=== PATIENT | female | born 1955 | race Caucasian/White ===

== ENCOUNTER 2017-01-29 11:18 | Emergency (ER) | payer BC ==
[2017-01-29] MEDS ORDERED: MECLIZINE 12.5 MG TAB PO STA (12:10)
[2017-01-29] MEDS ORDERED: LORazepam 1 MG TAB PO STA (12:10)
[2017-01-29] MEDS ORDERED: ONDANSETRON 4 MG TAB PO STA (12:13)
--- NOTE | 2017-01-29 13:55 | ED ---
General Adult HPI - General Chief complaint: Dizziness Stated complaint: Vertigo Time Seen by Provider: 01/29/17 11:51 Source: patient, family, RN notes reviewed Mode of arrival: wheelchair Limitations: no limitations - History of Present Illness Initial comments: 61-year-old female with past medical history of vertigo, anxiety, gastric reflux , diabetes, and osteoarthritis presenting with a 2 day history of dizziness. Patient states the room is spinning. She first appears symptoms 2 days ago when she woke it lasted approximately one hour. She had them again yesterday lasting approximately 5 minutes and today they have been ongoing for about 4 hours. She also complains of nausea. Denies vomiting. Denies vision changes. Denies fever or chills. Denies dysuria. Denies recent URI symptoms. Denies ear pain or hearing changes. Denies chest pain or shortness of breath. Denies palpitations. Patient's had similar symptoms proximally 5 years ago. Symptoms were sudden in onset. Prior to 2 days ago she had no complaints of dizziness, lightheadedness or nausea. - Related Data Home Medications Medication Instructions Recorded Confirmed Citalopram Hydrobromide [CeleXA] 20 mg PO HS 01/29/17 01/29/17 Pantoprazole Sodium 40 mg PO HS 01/29/17 01/29/17 sitaGLIPtin [Januvia] 100 mg PO HS 01/29/17 01/29/17 traMADol HCL [Ultram] 50 mg PO DAILY PRN 01/29/17 01/29/17 Previous Rx's Medication Instructions Recorded LORazepam [Ativan] 0.5 mg PO TID PRN #20 tab 01/29/17 Meclizine [Antivert] 25 mg PO TID PRN #30 tab 01/29/17 Ondansetron HCl [Zofran] 4 mg PO TID PRN #10 tablet 01/29/17 Allergies Allergy/AdvReac Type Severity Reaction Status Date / Time No Known Allergies Allergy Verified 01/29/17 12:25 Review of Systems ROS Statement: Those systems with pertinent positive or pertinent negative responses have been documented in the HPI. ROS Other: All systems not noted in ROS Statement are negative. Constitutional: Denies: fever, chills, weakness Eyes: Denies: eye pain ENT: Denies: throat pain Respiratory: Denies: cough, dyspnea Cardiovascular: Denies: chest pain Endocrine: Denies: fatigue Gastrointestinal: Reports: nausea. Denies: abdominal pain, vomiting Genitourinary: Denies: urgency, dysuria Skin: Denies: rash Neurological: Reports: vertigo. Denies: headache, weakness, numbness, paresthesias Past Medical History Past Medical History: Diabetes Mellitus, GERD/Reflux, Osteoarthritis (OA) Additional Past Medical History / Comment(s): vertigo, chronic back pain History of Any Multi-Drug Resistant Organisms: None Reported Past Surgical History: Back Surgery Past Psychological History: Anxiety, Depression Smoking Status: Former smoker Past Alcohol Use History: None Reported Past Drug Use History: None Reported General Exam Limitations: no limitations General appearance: alert, in no apparent distress Eye exam: Present: normal appearance, PERRL, EOMI. Absent: scleral icterus, nystagmus ENT exam: Present: mucous membranes moist, TM's normal bilaterally Neck exam: Present: full ROM. Absent: meningismus Respiratory exam: Present: normal lung sounds bilaterally. Absent: respiratory distress Cardiovascular Exam: Present: regular rate, normal rhythm GI/Abdominal exam: Present: soft. Absent: distended, tenderness Rectal exam: Present: deferred Extremities exam: Present: full ROM. Absent: pedal edema Neurological exam: Present: alert, oriented X3, CN II-XII intact, other. Absent : motor sensory deficit Psychiatric exam: Present: normal affect, normal mood Skin exam: Present: warm, dry Course Vital Signs 01/29/17 01/29/17 11:31 13:11 Temperature 98.1 F Pulse Rate 72 Respiratory 20 14 Rate Blood Pressure 142/68 O2 Sat by Pulse 99 Oximetry - Reevaluation(s) Reevaluation #1: 01/29/17 14:03 Patient is reevaluated at 1340. Her symptoms have improved. She still does experience some spinning sensation when she had placed. She has been up to the bathroom without difficulty. She has had no episodes of vomiting while in the emergency department. Medical Decision Making - Medical Decision Making 61-year-old female presenting with sudden onset dizziness and nausea. Patient has not had any episodes of vomiting. She states she feels like the room is spinning. The symptoms are worse while standing. The patient is lying down she has minimal symptoms. She is given meclizine, Zofran, and Ativan in the emergency department. Her neurologic exam is nonfocal. She has no nystagmus. Examination bilateral tympanic membranes is unremarkable. Patient has no recent history of URI. Her history and presentation is consistent with peripheral vertigo. On reevaluation she is feeling better. She only has mild symptoms with ambulation. Patient is agreeable to discharge and will present for reevaluation if symptoms worsen or change in any way. Patient is instructed on what to watch for at home. She will follow up with primary care physician. Patient does not have a primary care physician in [place], she is given family medicine follow-up. Diagnosis: Peripheral vertigo Disposition: Home with outpatient follow-up. Disposition Clinical Impression: Vertigo, benign positional Disposition: HOME SELF-CARE Condition: Good Instructions: Vertigo (ED) Prescriptions: LORazepam [Ativan] 0.5 mg PO TID PRN #20 tab PRN Reason: dizziness Meclizine [Antivert] 25 mg PO TID PRN #30 tab PRN Reason: dizziness Ondansetron HCl [Zofran] 4 mg PO TID PRN #10 tablet PRN Reason: Nausea Referrals: None,Stated [Primary Care Provider] - 1-2 days
[2017-01-29 14:04] VITALS: BP 147/70; PULSE 59; RESP 16; TEMP 98
== END 2017-01-29 14:02 | disposition home or self-care (01) ==
LOC: EC 11:18
DX: H81.10 Benign paroxysmal vertigo, unspecified ear (principal); E11.9 Type 2 diabetes mellitus without complications; K21.9 Gastro-esophageal reflux disease without esophagitis; F32.9 Major depressive disorder, single episode, unspecified; F41.9 Anxiety disorder, unspecified; Z87.891 Personal history of nicotine dependence; Z79.899 Other long term (current) drug therapy
CPT/HCPCS: 99283

== ENCOUNTER → 2017-09-25 | Outpatient (CLI) | payer BC ==
--- NOTE | 2017-09-26 12:13 | MM ---
Reason for exam: screening (asymptomatic). Physical Findings: A clinical breast exam by your physician is recommended on an annual basis and results should be correlated with mammographic findings. MG Screening Mammo w CAD Bilateral CC and MLO view(s) were taken. No prior studies available for comparison. The breast tissue is heterogeneously dense. This may lower the sensitivity of mammography. There is a low density 6mm mass in the lower inner quadrant on the left breast adjacent to a dystrophic calcification, 8cm from nipple. There is a 3mm group of calcifications in the upper outer quadrant of the left breast at posterior depth. Just superior and anterior on the MLO view there is a 4mm asymmetry. There is a focal asymmetry in the central outer right breast at posterior depth. ASSESSMENT: Incomplete: need additional imaging evaluation, BI-RAD 0 RECOMMENDATION: Special view mammogram of both breasts. If lesion persists on supplemental views, image directed ultrasound is recommended. [facility] will attempt to contact patient to return for supplemental views and ultrasound if indicated.
== END | disposition home or self-care (01) ==
LOC: RADMAMWWP 07:51
PROVIDERS: ATTEND Family Medicine
DX: Z12.31 Encounter for screening mammogram for malignant neoplasm of breast (principal)
CPT/HCPCS: 77067

== ENCOUNTER → 2017-09-29 | Outpatient (CLI) | payer BC ==
--- NOTE | 2017-09-29 13:19 | MM ---
Reason for exam: additional evaluation requested from abnormal screening. Last mammogram was performed less than 1 month ago. History: Patient is postmenopausal. Took hormonal contraceptives beginning at age 19. Physical Findings: Nurse did not find any significant physical abnormalities on exam. MG Work Up Mamm w CAD BILAT Bilateral ML view(s) were taken. Spot compression CC and spot compression MLO view(s) were taken of the right breast. CC with magnification and ML with magnification view(s) were taken of the left breast. Prior study comparison: September 25, 2017, bilateral MG screening mammo w CAD. The breast tissue is heterogeneously dense. This may lower the sensitivity of mammography. Asymmetry in the left upper outer quadrant does not completely go away. 6mm density does not completely go away inner lower quadrant Focal asymmetry right upper outer quadrant does not go away on addition views. These results were verbally communicated with the patient and result sheet given to the patient on 09/29/17. ASSESSMENT: Incomplete: need additional imaging evaluation, BI-RAD 0 RECOMMENDATION: Ultrasound of both breasts.
--- NOTE | 2017-09-29 13:26 | USB ---
Reason for exam: additional evaluation requested from abnormal screening. History: Patient is postmenopausal. Took hormonal contraceptives beginning at age 19. US Breast Limited BILAT Right breast ultrasound demonstrates a 3 x 2 x 3mm lesion too small to characterize at 9 o'clock. Left breast ultrasound demonstrates a 3 x 2 x 3mm lesion too small to characterize at 6 o'clock and a 2mm lesion too small to characterize at 6 o'clock. These results were verbally communicated with the patient and result sheet given to the patient on 09/29/17. ASSESSMENT: Probably benign, BI-RAD 3 RECOMMENDATION: Follow-up diagnostic mammogram and ultrasound of both breasts in 6 months.
== END | disposition home or self-care (01) ==
LOC: RADMAMWWP 10:59
PROVIDERS: ATTEND Family Medicine
DX: R92.8 Other abnormal and inconclusive findings on diagnostic imaging of breast (principal)
CPT/HCPCS: 77066

== ENCOUNTER → 2018-03-26 | Outpatient (CLI) | payer BC ==
--- NOTE | 2018-03-26 11:02 | MM ---
Reason for exam: follow-up at short interval from prior study. Last mammogram was performed 6 months ago. History: Patient is postmenopausal. Reductions of both breasts, 1993. Benign excisional biopsy of the right breast. Took hormonal contraceptives beginning at age 19. Physical Findings: Nurse did not find any significant physical abnormalities on exam. MG Diagnostic Mammo w CAD JOSEPH Bilateral CC and MLO view(s) were taken. Prior study comparison: September 29, 2017, bilateral MG work up mamm w CAD BILAT. September 25, 2017, bilateral MG screening mammo w CAD. The breast tissue is heterogeneously dense. This may lower the sensitivity of mammography. Finding: There are typically benign punctate calcifications. There is no discrete abnormality. No significant changes in finding since September 29, 2017 and September 25, 2017. These results were verbally communicated with the patient and result sheet given to the patient on 03/26/18. ASSESSMENT: Incomplete: need additional imaging evaluation, BI-RAD 0 RECOMMENDATION: Ultrasound of both breasts.
--- NOTE | 2018-03-26 11:03 | USB ---
Reason for exam: additional evaluation requested from abnormal screening. History: Patient is postmenopausal. Reductions of both breasts, 1992. Benign excisional biopsy of the right breast. Took hormonal contraceptives beginning at age 19. US Breast BILAT Right complete breast ultrasound includes all four quadrants, the retroareolar region and axilla. Finding demonstrates a 0.3 x 0.2 x 0.2cm oval, cystic lesion at 9 o'clock and calcification seen at posterior nipple. Left complete breast ultrasound includes all four quadrants, the retroareolar region and axilla. Finding demonstrates a 0.6 x 0.7 x 0.2cm oval, cystic lesion at 7 o'clock. These results were verbally communicated with the patient and result sheet given to the patient on 03/26/18. ASSESSMENT: Benign, BI-RAD 2 RECOMMENDATION: Routine screening mammogram of both breasts in 1 year. Manage patient on a clinical basis.
== END | disposition home or self-care (01) ==
LOC: RADMAMWWP 08:45
PROVIDERS: ATTEND Family Medicine
DX: R92.8 Other abnormal and inconclusive findings on diagnostic imaging of breast (principal)
CPT/HCPCS: 77066

== ENCOUNTER → 2019-04-09 | Outpatient (CLI) | payer BC ==
--- NOTE | 2019-04-09 15:43 | XR ---
Left hip HISTORY: Left hip pain 2 views of the left hip Some mild remodeling present at the lateral aspect of the left femoral head is noted. Joint spaces an d alignment are maintained. Postop changes are noted in the likely lumbosacral junction. Bone mineral ization is normal. IMPRESSION: There may be some mild osteoarthritic change. Postop changes are suspected in the lower s pine.
== END | disposition home or self-care (01) ==
LOC: RADXRMAIN 13:49
PROVIDERS: ATTEND Family Medicine
DX: M25.552 Pain in left hip (principal)
CPT/HCPCS: 73502

== ENCOUNTER → 2019-04-11 | Outpatient (CLI) | payer BC ==
--- NOTE | 2019-04-12 11:37 | MM ---
Reason for exam: screening (asymptomatic). Last mammogram was performed 1 year and 1 month ago. History: Patient is postmenopausal. Reductions of both breasts, 1992. Benign excisional biopsy of the right breast. Took hormonal contraceptives beginning at age 19. Physical Findings: A clinical breast exam by your physician is recommended on an annual basis and results should be correlated with mammographic findings. MG Screening Mammo w CAD Bilateral CC and MLO view(s) were taken. Prior study comparison: March 26, 2018, bilateral MG diagnostic mammo w CAD JOSEPH. September 29, 2017, bilateral MG work up mamm w CAD BILAT. The breast tissue is heterogeneously dense. This may lower the sensitivity of mammography. Benign appearing bilateral calcifications. No suspicious abnormality. No significant changes when compared with prior studies. ASSESSMENT: Benign, BI-RAD 2 RECOMMENDATION: Routine screening mammogram of both breasts in 1 year.
== END | disposition home or self-care (01) ==
LOC: RADMAMWWP 15:11
PROVIDERS: ATTEND Family Medicine
DX: Z12.31 Encounter for screening mammogram for malignant neoplasm of breast (principal); Z98.890 Other specified postprocedural states
CPT/HCPCS: 77067

== ENCOUNTER → 2019-05-27 | Outpatient (CLI) | payer BC ==
--- NOTE | 2019-05-28 05:27 | MR ---
EXAMINATION TYPE: MR hip LT wo con DATE OF EXAM: 05/27/2019 COMPARISON: Outside radiograph 05/13/2019 HISTORY: 64-year-old female Left hip pain TECHNIQUE: Multiplanar, multisequence images of the left hip were obtained without IV contrast. FINDINGS: Metal hardware artifact relating to L5-S1 posterior lumbar fusion. The sacrum and SI joints appear in tact. No hip fracture or AVN or other pelvic fracture is seen. The degenerative changes at pubic symphysis are noted. No suspicious bone marrow replacement. Mild degenerative changes suggested at both hips. Suggestion of an acetabular labral tear posteriorly on the right, refer to coronal STIR image 13 and axial T2 FS image 11. On the right, there appears to be a sizable tear involving the insertion of the lateral gluteus mediu s. Physiologic hip joint fluid. On the left, there is heterogeneity of both the gluteus minimus and lateral gluteus medius with some overlying edematous change. The hamstrings and rectus femoris origins as well as the iliopsoas insertions appear intact. Symmetric course and caliber of the sciatic nerves. No pelvic free fluid. Uterus surgically absent. IMPRESSION: 1. Mild degenerative change of both hips. Suggestion of a posterior acetabular labral tear on right. No evidence for hip fracture or AVN on either side. 2. Insertional gluteal tendinosis on the left with intrasubstance tearing of both the gluteus minimus and lateral gluteus medius insertions. 3. Extensive partial tear of the lateral gluteus medius insertion on the right.
== END ==
LOC: RADMRIMAIN 11:43
PROVIDERS: ATTEND Orthopaedic Surgery
DX: S76.012A Strain of muscle, fascia and tendon of left hip, initial encounter (principal); M25.852 Other specified joint disorders, left hip; M25.851 Other specified joint disorders, right hip; M67.854 Other specified disorders of tendon, left hip

== ENCOUNTER → 2020-08-03 | Outpatient (CLI) | payer MEDICARE, BC ==
--- NOTE | 2020-08-05 14:38 | MM ---
Reason for exam: screening (asymptomatic). Last mammogram was performed 1 year and 4 months ago. History: Patient is postmenopausal. Reductions of both breasts, 1993. Benign excisional biopsy of the right breast. Took hormonal contraceptives beginning at age 19. Physical Findings: A clinical breast exam by your physician is recommended on an annual basis and results should be correlated with mammographic findings. MG Screening Mammo w CAD Bilateral CC and MLO view(s) were taken. Prior study comparison: April 11, 2019, bilateral MG screening mammo w CAD. March 26, 2018, bilateral MG diagnostic mammo w CAD JOSEPH. There are scattered fibroglandular densities. Stable fat necrosis calcifications on the left. New lateral nodularity on the right. ASSESSMENT: Incomplete: need additional imaging evaluation, BI-RAD 0 RECOMMENDATION: Special view mammogram of the right breast. (3D) If lesion persists on supplemental views, image directed ultrasound is recommended. [facility] will attempt to contact patient to return for supplemental views and ultrasound if indicated.
== END | disposition home or self-care (01) ==
LOC: RADMAMWWP 09:12
PROVIDERS: ATTEND Family Medicine
DX: Z12.31 Encounter for screening mammogram for malignant neoplasm of breast (principal)
CPT/HCPCS: 77067

== ENCOUNTER → 2020-08-07 | Outpatient (CLI) | payer BC, MEDICARE ==
--- NOTE | 2020-08-07 10:48 | MM ---
Reason for exam: additional evaluation requested from abnormal screening. Last mammogram was performed less than 1 month ago. History: Patient is postmenopausal. Reductions of both breasts, 1982. Benign excisional biopsy of the right breast, 1982. Physical Findings: Nurse did not find any significant physical abnormalities on exam. MG Work Up Mamm w CAD RT Spot compression CC, spot compression MLO, and ML view(s) were taken of the right breast. Prior study comparison: August 03, 2020, bilateral MG screening mammo w CAD. April 11, 2019, bilateral MG screening mammo w CAD. The breast tissue is heterogeneously dense. This may lower the sensitivity of mammography. Focal asymmetry outer right breast. My be present in retrospect. Not distinct on compression. This finding is changed when compared with previous exams. These results were verbally communicated with the patient and result sheet given to the patient on 08/07/20. ASSESSMENT: Probably benign, BI-RAD 3 RECOMMENDATION: Follow-up diagnostic mammogram of the right breast in 6 months.
== END | disposition home or self-care (01) ==
LOC: RADMAMWWP 09:00
PROVIDERS: ATTEND Family Medicine
DX: R92.8 Other abnormal and inconclusive findings on diagnostic imaging of breast (principal)
CPT/HCPCS: 77065

== ENCOUNTER → 2021-09-07 | Outpatient (CLI) | payer MEDICARE ==
--- NOTE | 2021-09-07 11:37 | MM ---
Reason for exam: additional evaluation requested from prior study. Last mammogram was performed 1 year and 1 month ago. History: Patient is postmenopausal. Reductions of both breasts, 1982. Benign excisional biopsy of the right breast, 1982. Physical Findings: Nurse did not find any significant physical abnormalities on exam. MG Diagnostic Mammo w CAD JOSEPH Bilateral CC and MLO view(s) were taken. Spot compression CC view(s) were taken of the right breast. Prior study comparison: August 03, 2020, bilateral MG screening mammo w CAD. April 11, 2019, bilateral MG screening mammo w CAD. March 26, 2018, bilateral MG diagnostic mammo w CAD JOSEPH. There are scattered fibroglandular densities. Asymmetric breast tissue right breast on CC middle position does not persist. These results were verbally communicated with the patient and result sheet given to the patient on 09/07/21. ASSESSMENT: Benign, BI-RAD 2 RECOMMENDATION: Routine screening mammogram of both breasts in 1 year.
== END | disposition home or self-care (01) ==
LOC: RADMAMWWP 10:42
PROVIDERS: ATTEND Family Medicine
DX: R92.8 Other abnormal and inconclusive findings on diagnostic imaging of breast (principal); Z78.0 Asymptomatic menopausal state
CPT/HCPCS: 77066

== ENCOUNTER 2021-12-22 11:54 | Emergency (ER) | payer MEDICARE, BC ==
[2021-12-22 12:25] VITALS: BP 114/70; PULSE 77; RESP 18; TEMP 98.3
--- NOTE | 2021-12-22 13:24 | XR ---
Lumbar spine HISTORY: Chronic back pain 3 views of the lumbar spine, no comparisons Patient is status post posterior lumbar sacral fusion L5-S1, grade 1 to grade 2 anterolisthesis prese nt L5-S1, intervertebral spacing block is present. Lumbar vertebral bodies show preserved height, bon e mineralization is reduced. There is multilevel spondylosis. Loss of disc height is present at L5-S1 and L2-3. Atherosclerotic calcifications are present in the aorta iliac distribution. Sclerosis is p resent in the posterior elements of the lower lumbar spine. Rudimentary rib present at L1 on the righ t. Laminectomy change present at L5. Surgical clips are present in the right upper quadrant. IMPRESSION: Postop changes, osteopenia, degenerative disc disease and facet arthropathy
[2021-12-22] MEDS ORDERED: DIAZEPAM 5 MG/ML 2 ML INJ IM ONE (14:41)
[2021-12-22] MEDS ORDERED: KETOROLAC 15 MG/ML 1 ML VIAL IM STA (14:41)
--- NOTE | 2021-12-22 14:52 | ED ---
General Adult HPI - General Chief complaint: Back Pain/Injury Stated complaint: back pain Time Seen by Provider: 12/22/21 14:29 Source: patient, RN notes reviewed, old records reviewed Mode of arrival: ambulatory Limitations: no limitations - History of Present Illness Initial comments: 66-year-old female presenting for evaluation of low back pain and pain radiating into her bilateral legs. Patient states that she had contacted orthopedics and has an appointment for January 19 for evaluation. Her pain has progressively worsened. There's been no injury. She denies saddle anesthesia. She is having difficulty ambulating secondary to pain. Patient states she had lumbar spinal surgery about 14 years ago. [place]. No fever. No urinary incontinence. - Related Data Home Medications Medication Instructions Recorded Confirmed Citalopram Hydrobromide [CeleXA] 20 mg PO HS 01/29/17 01/29/17 Pantoprazole Sodium 40 mg PO HS 01/29/17 01/29/17 sitaGLIPtin [Januvia] 100 mg PO HS 01/29/17 01/29/17 traMADol HCL [Ultram] 50 mg PO DAILY PRN 01/29/17 01/29/17 Previous Rx's Medication Instructions Recorded LORazepam [Ativan] 0.5 mg PO TID PRN #20 tab 01/29/17 Meclizine [Antivert] 25 mg PO TID PRN #30 tab 01/29/17 ondansetron HCL [Zofran] 4 mg PO TID PRN #10 tablet 01/29/17 Cyclobenzaprine [Flexeril] 5 mg PO TID PRN #9 tablet 12/22/21 HYDROcodone/APAP 5-325MG [[place] 1 tab PO Q6HR PRN #12 tab 12/22/21 5-325] Ibuprofen [Motrin] 600 mg PO Q8HR PRN #24 tab 12/22/21 Allergies Allergy/AdvReac Type Severity Reaction Status Date / Time No Known Allergies Allergy Verified 12/22/21 12:26 Review of Systems ROS Statement: Those systems with pertinent positive or pertinent negative responses have been documented in the HPI. ROS Other: All systems not noted in ROS Statement are negative. Past Medical History Past Medical History: Diabetes Mellitus, GERD/Reflux, Osteoarthritis (OA) Additional Past Medical History / Comment(s): vertigo, chronic back pain History of Any Multi-Drug Resistant Organisms: None Reported Past Surgical History: Back Surgery Past Psychological History: Anxiety, Depression Smoking Status: Never smoker Past Alcohol Use History: None Reported Past Drug Use History: Marijuana General Exam Limitations: no limitations General appearance: alert, in no apparent distress Head exam: Present: atraumatic, normocephalic Eye exam: Present: normal appearance ENT exam: Present: normal exam Neck exam: Present: normal inspection. Absent: tenderness, meningismus Respiratory exam: Present: normal lung sounds bilaterally. Absent: respiratory distress, wheezes Cardiovascular Exam: Present: regular rate, normal rhythm GI/Abdominal exam: Present: soft. Absent: distended, tenderness Extremities exam: Present: normal capillary refill, other (Pulses intact). Absent: pedal edema, calf tenderness Neurological exam: Present: alert, oriented X3, CN II-XII intact Skin exam: Present: warm, dry, intact. Absent: cyanosis, diaphoretic Course Vital Signs 12/22/21 12:20 Temperature 98.3 F Pulse Rate 77 Respiratory 18 Rate Blood Pressure 114/70 O2 Sat by Pulse 99 Oximetry Medical Decision Making - Medical Decision Making 66-year-old female with acute on chronic low back pain, worsening over the past several weeks. Patient has been on Tylenol only. She does have radicular symp toms. She has no saddle anesthesia. No bowel or bladder incontinence. She has good distal pulses. She is somewhat limited in her movement by pain. After Toradol and Valium she is feeling somewhat better. I did discuss the case with Erma who is covering for Dr. Titus about possibly getting this patient in sooner than January 19. Patient is given strict return parameters. She will trial oral medication. Disposition Clinical Impression: Lumbar radiculopathy, chronic, Chronic low back pain Disposition: HOME SELF-CARE Condition: Fair Instructions (If sedation given, give patient instructions): Acute Low Back Pain (ED) Prescriptions: Cyclobenzaprine [Flexeril] 5 mg PO TID PRN #9 tablet PRN Reason: Muscle Spasm Ibuprofen [Motrin] 600 mg PO Q8HR PRN #24 tab PRN Reason: Pain HYDROcodone/APAP 5-325MG [[place] 5-325] 1 tab PO Q6HR PRN #12 tab PRN Reason: Pain Is patient prescribed a controlled substance at d/c from ED?: No Referrals: Neto Feliz [Primary Care Provider] - 1-2 days James Titus DO [Doctor of Osteopathic Medicine] - 1-2 days Time of Disposition: 15:34
== END 2021-12-22 16:30 | disposition home or self-care (01) ==
LOC: EC 11:54
DX: M54.16 Radiculopathy, lumbar region (principal); E11.9 Type 2 diabetes mellitus without complications; K21.9 Gastro-esophageal reflux disease without esophagitis; M19.90 Unspecified osteoarthritis, unspecified site; Z79.899 Other long term (current) drug therapy; Z79.84 Long term (current) use of oral hypoglycemic drugs
CPT/HCPCS: 72100; 99283; 96372; J3360; J1885

== ENCOUNTER → 2022-02-07 | Outpatient (CLI) | payer MEDICARE, BC ==
[2022-02-07 12:57] VITALS: BP 102/60; PULSE 77; RESP 18; TEMP 98.2
--- NOTE | 2022-02-07 13:10 | P.PAINPG ---
PQRS Measure Charge Sheet Comment: HISTORY OF PRESENT ILLNESS: 66 yr old female as a referral from with severe and chronic LBP / tailbone pain secondary to BL Sacroiliitis for evaluation. Pt states her pain level is currently at 4/10 in intensity, intermitteint, sharp/ache shooting pain localized in the lower aspect of her lumbar spine, in character with radiation of pain towards the inner hips, groin and inner thighs. Pain is provoked with sitting for periods of 30 min or more. Pain is palliated with heat, one PT session but stopped due to increased pain, medications (Ibuprofen), home based stretching regimen, walking and rest. PMH: NIDDM Type II, GERD/Reflux, OA, MDD/ Anxiety PSH: Back Surgery SH: Never smoker, No ETOH abuse, +Cannabis use FH: Non contributory All: NKDA Meds: See list REVIEW OF ORGAN SYSTEMS: CONSTITUTIONAL: No fevers or chills. No recent weight loss. HEENT: No visual acuity loss, eye pain, difficulties with hearing. No nosebleeds. No difficulty swallowing. RESPIRATORY: Denies any troubles with breathing or dyspnea on exertion. CARDIOVASCULAR: Denies any chest pain, palpitations, or recent heart attacks. GASTROINTESTINAL: Denies fatty food intolerance. Has change in bowel habits and gas bloat. GENITOURINARY: Denies any blood in urine. Has increased urinary frequency. NEUROLOGICAL: + numbness and tingling along the distal extremities. No seizure disorders or headaches. MUSCULOSKELETAL: + back pain SKIN: No skin cancer. No rash. PSYCHIATRIC: Denies current depression or suicidal thoughts. ENDOCRINE: Denies current thyroid disorders. Denies any blood sugar glucose intolerance. HEME/LYMPHATIC: Denies any lumps and bumps around the neck. History of deep venous thrombosis. ALLERGY/IMMUNOLOGY: No immunoglobulin therapy. No immune deficiencies. BREAST: Denies current breast lumps, pain or nipple discharge. Physical Examinations : Constitutional : Cooperative , not in acute distress . HEENT: Neck supple. No Lymphadenopathy. Normal thyroid size . Eyes no ptosis , no icterus, no photophobia . Hearing intact. Normal oropharynx. No Thrush. Respiratory : Chest clear to auscultations bilaterally. No wheezing. No rhonchi. Cardiovascular : Regular rate and rhythm , S1 / S2. No S3 . No S4. Gastrointestinal : Abdomen soft. No tenderness. Bowel sounds x 4. No organomegaly . Genitourinary : Deferred. Neurologic : Cranial nerve II to XII intact. No focal neurological deficits. Psychiatric : alert & oriented x 3. Matching mood & appropriate affect. Judgment & insight intact. Lymphatic No Lymphadenopathy. Musculoskeletal : Cervical Spine Motor strength in the deltoid and biceps: Normal right side. Normal Left side Motor strength biceps and the wrist extensors: Normal right side . Normal left side Motor strength in the triceps muscle: Normal right side. Normal left side Deep tendon reflexes: Normal at the biceps. Normal at Brachioradialis. Normal at triceps Cervical facet loading test: positive bilaterally Spurling test: positive bilaterally Neck distraction test: positive bilaterally Gely sign: positive bilaterally Lumbar spine Motor strength lower extremities ,thigh and legs 5/5 Right side , 5/5 Left side Deep tendon reflexes : Normal Knee Jerk. Normal Ankle Jerk Vertebral body tenderness over Lumbar facet Loading Test: positive Right / positive Left Range of motion of the lumbar spine Flexion 30 degrees, extension 10 degrees Straight Leg Raise test: Left/ Right positive at degree Donovan test: positive right / positive left. Severe tenderness over the Sacroiliac joint on the Right / Left sides Gaenslen test: positive bilaterally Seated flexion test: positive bilaterally. Sacral spine : Severe tenderness over the Sacroiliac joint: right side / left side Range of motion: Flexion of the lumbar spine <60 degrees Range of motion: Extension of the lumbar spine <20 degrees Gaenslen's Test positive Donovan test: positive right side < left side Thigh Thrust Test BL Sacral Thrust Test BL Imaging: X ray of lumbar spine reviewed Assessment/ Plan : BL Sacroiliitis Recommendation of BL SI joint injection. May need a series of injections, up to every 3 mo, for ooptimal pain relief. Risks, benefits of procedure discussed and patient verbalized understanding. Denies aspirin or anti- coagulant use. Admits to a medical history of diabetes. Protocol for discontinuation/ continuation of medications per i procedure discussed. All questions answered. I have spent greater than 50 minutes on patient care today. Dr Rinaldi was avai lable by phone for the evaluation of this patient. The time was used to review the medical records including relevant urine studies and Prescription history (MAPs), review of the available imaging, evaluation and examination of the patient, coordination of care with the medical staff and if applicable referring physicians, as well as creation of the medical record PQRS Narrative: Smoking Status Former smoker Home Medications: Ambulatory Orders Citalopram Hydrobromide [CeleXA] 20 mg PO HS 01/29/17 LORazepam [Ativan] 0.5 mg PO TID PRN #20 tab 01/29/17 Meclizine [Antivert] 25 mg PO TID PRN #30 tab 01/29/17 Pantoprazole Sodium 40 mg PO HS 01/29/17 ondansetron HCL [Zofran] 4 mg PO TID PRN #10 tablet 01/29/17 sitaGLIPtin [Januvia] 100 mg PO HS 01/29/17 traMADol HCL [Ultram] 50 mg PO DAILY PRN 01/29/17 Cyclobenzaprine [Flexeril] 5 mg PO TID PRN #9 tablet 12/22/21 HYDROcodone/APAP 5-325MG [Maynard 5-325] 1 tab PO Q6HR PRN #12 tab 12/22/21 Ibuprofen [Motrin] 600 mg PO Q8HR PRN #24 tab 12/22/21 Controlled Substance Measures - Controlled Substance Measures Is patient prescribed a controlled substance at discharge?: No
== END ==
LOC: PNWHC3 12:21
PROVIDERS: ATTEND Specialist
DX: M46.1 Sacroiliitis, not elsewhere classified (principal); Z87.891 Personal history of nicotine dependence; E11.9 Type 2 diabetes mellitus without complications; M19.90 Unspecified osteoarthritis, unspecified site; F41.9 Anxiety disorder, unspecified
CPT/HCPCS: 99211

== ENCOUNTER 2022-02-25 08:00 | Day surgery (SDC) | payer MEDICARE, BC ==
[2022-02-25 08:28] VITALS: RESP 16; TEMP 97.9
[2022-02-25] MEDS ORDERED: diazePAM 5 MG TAB PO STA (08:32)
[2022-02-25] MEDS ORDERED: HYDROcodone/APAP 5-325MG 1 EACH TAB PO PRN (10:25)
--- NOTE | 2022-02-25 12:11 | CT ---
EXAMINATION TYPE: CT lumbar spine w con DATE OF EXAM: 02/25/2022 COMPARISON: Radiograph 12/22/2021 HISTORY: 66-year-old female M5 4.50, Low back pain. TECHNIQUE: Contiguous axial scanning of the lumbar spine performed after intrathecal administration o f IV contrast, patient injected with 13 mL of Isovue M200. Coronal/sagittal reconstructions performed . CT DLP: 695.1 mGycm Automated exposure control for dose reduction was used. FINDINGS: Vertebral body heights are preserved although there is a large superior endplate Schmorl's node at L3 . Scattered facet arthropathy with trace degenerative grade 1 retrolisthesis L2-L3 and L3-L4, L4-L5. There is a fixed grade 1 anterolisthesis at L5-S1 secondary to old posterior and interbody fusion wit h corresponding laminectomy. Mild multilevel degenerative disc disease, more moderate at L2-L3 with disc space narrowing. Bulging disks here and at L3-L4 mildly impress on the ventral thecal sac without any significant spinal canal stenosis. Conus medullaris is normal. On the left, bony hyperostotic changes at the facet joints at L5-S1 contribute to a moderate neurofor aminal stenosis. Mild overall neural foraminal stenosis at L4-L5. On the right, no significant neuroforaminal narrowing is seen. Possible underlying renal cortical lesions partially visualized. Renal ultrasound to further evaluate . Surgical material involving some of the right mid abdominal bowel partially seen. IMPRESSION: 1. MILD MULTILEVEL DEGENERATIVE DISC DISEASE, MORE MODERATE AT L2-L3. SCATTERED FACET ARTHROPATHY AND DEGENERATIVE TRACE GRADE 1 RETROLISTHESIS L2-L5 LEVELS. 2. FIXED GRADE 1 ANTEROLISTHESIS AT L5-S1 SECONDARY TO OLD POSTERIOR AND INTERBODY FUSION WITH CORRES PONDING LAMINECTOMY. 3. SOME DISC BULGING MILDLY IMPRESSES ON THE VENTRAL THECAL SAC AT A COUPLE LEVELS (L2-L3 AND L3-L4) BUT WITHOUT ANY SIGNIFICANT SPINAL CANAL STENOSIS. 4. RESIDUAL DEGENERATIVE HYPEROSTOSIS INVOLVING LEFT-SIDED FACETS AT L5-S1 CONTRIBUTING TO A MODERATE LEFT NEUROFORAMINAL STENOSIS HERE. MILD LEFT NEUROFORAMINAL STENOSIS AT L4-L5. 5. RENAL ULTRASOUND FOLLOW-UP TO EXCLUDE ANY CORTICAL LESIONS OR CYSTS.
--- NOTE | 2022-02-25 12:18 | FL ---
PROCEDURE: FL lumbar mammogram injection. DATE: 02/25/2022 CLINICAL HISTORY: 66-year-old female M5 4.50, low back pain COMPLICATIONS: None SEDATION: 5 mg oral Valium administered by radiology nursing. The patient and the patient's vital signs were m onitored by qualified independent radiology personnel. TECHNIQUE: The procedure and potential risks were explained to patient and an informed consent was obtained with teach back. Site and side was verified. A time out was performed. The patient was placed prone on the fluoroscopy table and the L3-L4 level was localized and the skin was marked and was prepped and draped in the usual sterile fashion. Lidocaine was used for local anesthesia. Utilizing fluoroscopic guidance a 22-gauge 5 inch spinal nee dle was placed through the skin and into the subarachnoid space. Clear CSF was visualized at the hub. Subsequently, a total 13 mL Isovue-M 200 contrast material was a dministered into the subarachnoid space. The patient tolerated the procedure well. After a 30 minute wait, the patient is sent for CT in satis factory condition. The estimated blood loss was minimal. The patient experienced some exacerbation of lower extremity p ain while laying on the table. Otherwise, the patient's condition was unchanged following the procedu re. Fluoroscopy time: 26 seconds Total images: 3 IMPRESSION: Successful lumbar mammogram injection for CT.
[2022-02-25 14:02] VITALS: BP 114/58; PULSE 64
== END 2022-02-25 14:18 | disposition home or self-care (01) ==
LOC: RADPROMAIN 08:00
PROVIDERS: ATTEND Orthopaedic Surgery
DX: M46.1 Sacroiliitis, not elsewhere classified (principal); M54.16 Radiculopathy, lumbar region; Z98.1 Arthrodesis status
CPT/HCPCS: 62304; 72132

== ENCOUNTER 2022-03-03 08:16 | Day surgery (SDC) | payer MEDICARE, BC ==
[~2022-03-03 08:16] MED LIST: LACTATED RINGERS 1,000 ML IV SCH
[2022-03-03 08:36] VITALS: TEMP 97.9
[2022-03-03 09:10] LABS: Glucose,Whole Blood 120 mg/dL (70-110)
[2022-03-03] MEDS ORDERED: ROPIVACAINE 5MG/ML 20ML VIAL ONE (09:11)
[2022-03-03] MEDS ORDERED: methylPREDNISolone ACETATE 40 MG/ML 1 ML VIAL ONE (09:11)
[2022-03-03] MEDS ORDERED: IOPAMIDOL M200 10 ML VIAL ONE (09:11)
--- NOTE | 2022-03-03 09:15 | P.PCN ---
Date of Procedure: 03/03/22 Procedure(s) Performed: Procedure: Sacroiliac joint injection bilateral Preoperative diagnosis: Sacroiliitis Postoperative diagnosis: Sacroiliitis Imaging: Fluoroscopy was used, images where saved to the medical record Complications: none ANESTHESIA: Medication Administered by: None Sedation Type: Local only Sedation Supervision start time: Sedation Supervision end time: Description of the procedure: procedure risk and benefits discussed with the patient, including but not limited, risk of infection and bleeding, and allergic reaction to the medication and incomplete pain relief. Patient agreed and signed consent. Patient was taken to the room and placed in a prone position. Chlorhexidine was used to cleanse the skin. Under sterile conditions patient skin was anesthetized 1% lidocaine. Subcutaneous tissues were also anesthetized with a total 5 mL of 1% lidocaine. After that, a 22-gauge spinal needle was advanced through the anesthetized location under fluoroscopic guidance. Needle was advanced into the inferior portion of the sacroiliac joint. IV contrast was used to confirm spread within the joint. After adequate spread was achieved, 2.5 ML's of 0.5% ropivacaine with 40 mg of depomedrol was injected into the joint (steroid split between both sides if bilateral). Patient tolerated the procedure well. Sent to the recovery room in stable condition. Patient will follow up as directed.
[2022-03-03 09:35] VITALS: RESP 16
[2022-03-03 09:50] VITALS: BP 101/56; PULSE 73
--- NOTE | 2022-03-03 10:00 | FL ---
Intraoperative/procedural fluoroscopic services were provided for sacroiliac joint injections. Total fluoroscopy time is 11 seconds with a total of 2 submitted images to PACS. Please see the operative n ote for further details.
== END 2022-03-03 09:45 | disposition home or self-care (01) ==
LOC: ORPAIN 08:16
PROVIDERS: ATTEND Hospitalist
DX: M46.1 Sacroiliitis, not elsewhere classified (principal); Z87.891 Personal history of nicotine dependence; Z79.84 Long term (current) use of oral hypoglycemic drugs; Z79.899 Other long term (current) drug therapy
CPT/HCPCS: J1030; Q9966; J2795; G0260

== ENCOUNTER → 2022-03-30 | Outpatient (CLI) | payer MEDICARE ==
[2022-03-30 09:11] VITALS: BP 108/72; PULSE 73; RESP 18; TEMP 98.4
--- NOTE | 2022-03-30 15:02 | P.PAINPG ---
Objective - Vital Signs Vital signs: Vital Signs Temp 98.4 F 03/30/22 09:07 Pulse 73 03/30/22 09:07 Resp 18 03/30/22 09:07 BP 108/72 03/30/22 09:07 Pulse Ox 98 03/30/22 09:07 FiO2 Intake & Output 03/29/22 03/30/22 03/30/22 18:59 06:59 18:59 Weight 75.296 kg PQRS Measure Charge Sheet Mode of Arrival: Ambulatory Comment: A 66 yr old female with a history of severe and chronic low back pain secondary to lumbar degenerative disc diseases and lumbar spondylosis with facet arthropathy without myelopathy and BL Sacroiliitis presents today for evaluation s/p BL SI joint injection. Pt states she received 90% pain relief x 3 wks s/p procedure. Pain level is currently at 2 /10 in intensity, constant, R lower lumbar spine, dull/ achy/ throbbing in character w escalation as high as 7/10 w shooting towards the groin w provocation. Pain is provoked by bending/weight bearing activity. Pain is alleviated with PT in the past, home exercise regimen, repositioning and rest. Interventional pain procedures completed include BL SI injection Patient is currently on Motrin OTC, Lyrica from Dr Titus Patient denies any side effects of the medication(s), denies excessive drowsiness or sleepiness, denies suicidal ideation and reports that the current pain medication is helping to control the pain and improve activities of daily living. Patient denies any motor or sensory deficits. Patient denies any fever or night sweats, denies any change in the bowel movements or urination. Physical Examination: -Constitutional: Cooperative. Not in acute distress . - Neurologic: Cranial nerve II to XII intact. No focal neurological deficits. - Psychatric: Alert & oriented x 3. Matching mood & appropriate affect. Judgment and insight intact. - Musculoskeletal: Cervical spine: Muscle bulk/ tone/ strength in the bilateral upper extremities normal Vertebral body tenderness to palpation over Spurling test positive Distraction test positive Facet loading test positive Thoracic spine Muscle bulk / tone/ strength in the bilateral paraspinal muscles normal Vertebral body tender to palpation over Facet loading test positive Lumbar spine: Motor bulk/ tone/ strength lower extremities , thigh and legs : 5/5 Deep tendon reflexes : Normal Knee Jerk. Normal Ankle Jerk . Vertebral body tenderness to palpation over Lumbar Facet Loading Test positive Straight Leg Raise: positive at 30 degrees right side/ left side Gaenslen's Test positive Sacral spine : Severe tenderness over the Sacroiliac joint: right side / left side Range of motion: Flexion of the lumbar spine <60 degrees Range of motion: Extension of the lumbar spine <20 degrees Gaenslen's Test positive BL Donovan test: positive right side > left side Thigh Thrust Test BL BL Sacral Thrust Test Assessment and plan: Chronic low back pain secondary to lumbar degenerative disc disease , lumbar spondylosis with facet arthropathy without myelopathy, BL Sacroiliitis Recommendation of BL SI joint injection #2. May need a series of injections, up to 4 within a 12 mo period, for optimal pain relief. Risks, benefits of procedure discussed and pt verbalized understanding. Denies antic oagulant use or medical history of diabetes. All patient questions answered MAPS reviewed and it was appropriate. I have spent less than 30 minutes on patient care today. Dr Rinaldi was available by phone for the evaluation of this patient. The time was used to review the medical records including relevant urine studies and Prescription history (MAPs), review of the available imaging, evaluation and examination of the patient, coordination of care with the medical staff and if applicable referring physicians, as well as creation of the medical record - Pain Location Lower Back Non-Pharmacological Interventions: Home Exercise, Inactivity, Physical Therapy, Position/Reposition, Sitting, Stretching Pharmacological Interventions: PRN Medication, Scheduled Medication, Topical Medication PQRS Narrative: Smoking Status Former smoker Blood Pressure 108/72 Pain Intensity [Lower Back] 2 Scale Used Numeric (1 - 10) Hx Alcohol Use (MH) No Home Medications: Ambulatory Orders Pantoprazole Sodium 40 mg PO HS 01/29/17 Cholecalciferol [Vitamin D3 (25 Mcg = 1000 Iu)] 50 mcg PO DAILY 02/18/22 Citalopram Hydrobromide [CeleXA] 40 mg PO DAILY 02/18/22 Cyanocobalamin (Vitamin B-12) [Vitamin B-12] 1,000 mcg PO DAILY 02/18/22 Ibuprofen 800 mg PO Q8H PRN 02/18/22 Semaglutide [Ozempic] 1 mg SQ WEEKLY 02/18/22 buPROPion SR [Wellbutrin SR] 150 mg PO DAILY 02/18/22 lisinopriL [Zestril] 5 mg PO DAILY 02/18/22 metFORMIN HCL 500 mg PO DAILY 02/18/22 Pregabalin [Lyrica] 150 mg PO BID 03/30/22 Controlled Substance Measures - Controlled Substance Measures Is patient prescribed a controlled substance at discharge?: No
== END ==
LOC: PNWHC3 08:50
PROVIDERS: ATTEND Specialist
DX: M46.1 Sacroiliitis, not elsewhere classified (principal); M51.36 Other intervertebral disc degeneration, lumbar region; M47.816 Spondylosis without myelopathy or radiculopathy, lumbar region; G89.29 Other chronic pain; Z87.891 Personal history of nicotine dependence
CPT/HCPCS: 99211

== ENCOUNTER 2022-05-03 11:21 | Day surgery (SDC) | payer MEDICARE ==
[2022-05-02 09:23] VITALS: BMI 27.8
[~2022-05-03 11:21] MED LIST changes: +LIDOCAINE 1% (10MG/ML) FOR IV START INTRADERMA PRN
[2022-05-03 11:57] VITALS: TEMP 96.5
[2022-05-03 12:07] LABS: Glucose,Whole Blood 89 mg/dL (70-110)
[2022-05-03] MEDS ORDERED: methylPREDNISolone ACETATE 40 MG/ML 1 ML VIAL ONE (12:39)
[2022-05-03] MEDS ORDERED: ROPIVACAINE 5 MG/ML 20 ML AMPULE ONE (12:39)
--- NOTE | 2022-05-03 12:53 | P.PCN ---
Date of Procedure: 05/03/22 Procedure(s) Performed: Procedure= bilateral sacroiliac joints steroid injection under fluoroscopy guidance (fluoroscopy image stored on file in the radiology Department ) Preoperative diagnosis= 1-sacroiliitis 2-lumbar degenerative disc disease 3- lumbar facet arthropathy Postoperative diagnosis=Same as preop Diagnosis . Complication = none Condition= stable Anesthesia= local infiltration with ropivacaine 0.5% 4 mL only. Indication for the procedure= patient complaining of low back pain , examination was positive for severe tenderness over the sacroiliac joints bilaterally and patient diagnosed with sacroiliitis, for this reason she was good candidate for sacroiliac joint steroid injection. Description of the procedure= procedure risk and benefits discussed with the patient, including but not limited, risk of infection and bleeding, and ALLERGIC reaction to the medication and not complete pain relief and patient agreed with the preceding patient taken to the operating room, placed in prone position or standard monitors applied to the patient then after induction of anesthesia back prepped with chlorhexidine 3 times , Then under strict sterile technique, first I did the right sacroiliac joint the which was identified under fluoroscopy guidance been local infiltration of the skin and subcu interstitial with lidocaine 1% then 22-gauge Quincke Needle advanced slowly under fluoroscopy and placed in the right sacroiliac joint needle placement confirmed with AP and oblique and lateral view and after appropriate needle placement confirmed and after negative aspiration, or heme , then Ropivacaine 0.5% 4 mL, and 20 mg of Depo-Medrol mixed together and injected in the right sacroiliac joint after negative aspiration patient tolerated the procedure well without any complication. Then the left sacroiliac joint steroid injection done under strict sterile technique local infiltration of the skin and subcu interstitial at the location of the left sacroiliac joint then a 22-gauge Quincke Needle advanced slowly under fluoroscopy time placed in the left sacroiliac joint, needle placement confirmed with AP and oblique and lateral view then after appropriate needle placement confirmed and after negative aspiration 0.5% Ropivacaine 4 mL and 20 mg of Depo-Medrol injected in the left sacroiliac joint after negative aspiration patient tolerated the procedure well that any complications and she will follow up in clinic 3 weeks
[2022-05-03 13:05] VITALS: RESP 18
[2022-05-03 13:20] VITALS: BP 113/74; PULSE 68
--- NOTE | 2022-05-03 13:34 | FL ---
EXAMINATION TYPE: FL guided pain mgmt statistic DATE OF EXAM: 05/03/2022 HISTORY: Fluoroscopy time 9 seconds of fluoroscopy provided. IMPRESSION: 1. Fluoroscopy time.
== END 2022-05-03 13:25 | disposition home or self-care (01) ==
LOC: ORPAIN 11:21
PROVIDERS: ATTEND Specialist
DX: M46.1 Sacroiliitis, not elsewhere classified (principal); M51.36 Other intervertebral disc degeneration, lumbar region; M47.816 Spondylosis without myelopathy or radiculopathy, lumbar region
CPT/HCPCS: J1030; J2795; G0260 ×2

== ENCOUNTER → 2022-05-30 | Outpatient (CLI) | payer MEDICARE, BC ==
[2022-05-30 11:27] VITALS: BP 111/68; PULSE 88; RESP 18; TEMP 98.2
--- NOTE | 2022-05-30 14:43 | P.PAINPG ---
PQRS Measure Charge Sheet Comment: A 67 yr old female with a history of severe and chronic low back pain secondary to lumbar degenerative disc diseases and lumbar spondylosis with facet arthropathy without myelopathy presents today for evaluation s/p BL SI injection. Pt states she experienced 80% pain relief x 4 wks s/p procedure. Pain level is currently at 2/10 in intensity, constant, localized in the lower lumbar spine, dull in character w shooting towards the buttocks. Pain is provoked by standing/ walking for periods of 5 min or more, or sitting for periods of 30 min or more. Pain is alleviated with indications (Lyrica, ibuprofen), THC, topicals, heat, repositioning and rest. Interventional pain procedures completed include BL SI injection Patient is currently on Lyrica, ibuprofen Patient denies any side effects of the medication(s), denies excessive drowsiness or sleepiness, denies suicidal ideation and reports that the current pain medication is helping to control the pain and improve activities of daily living. Patient denies any motor or sensory deficits. Patient denies any fever or night sweats, denies any change in the bowel movements or urination. Physical Examination: -Constitutional: Cooperative. Not in acute distress . - Neurologic: Cranial nerve II to XII intact. No focal neurological deficits. - Psychatric: Alert & oriented x 3. Matching mood & appropriate affect. Judgment and insight intact. - Musculoskeletal: Cervical spine: Muscle bulk/ tone/ strength in the bilateral upper extremities normal Vertebral body tenderness to palpation over Spurling test positive Distraction test positive Facet loading test positive Thoracic spine Muscle bulk / tone/ strength in the bilateral paraspinal muscles normal Vertebral body tender to palpation over Facet loading test positive Lumbar spine: Motor bulk/ tone/ strength lower extremities , thigh and legs : 5/5 Deep tendon reflexes : Normal Knee Jerk. Normal Ankle Jerk . Vertebral body tenderness to palpation over BL paraspinal TTP over L3-S1 Lumbar Facet Loading Test positive Straight Leg Raise: positive at 30 degrees right side/ left side Gaenslen's Test positive Sacral spine : Severe tenderness over the Sacroiliac joint: right side / left side Range of motion: Flexion of the lumbar spine <60 degrees Range of motion: Extension of the lumbar spine <20 degrees Gaenslen's Test positive Abdi's Test positive Donovan test: positive right side / left side Thigh Thrust Test Sacral Thrust Test Assessment and plan: Chronic low back pain secondary to lumbar degenerative disc disease , lumbar spondylosis with facet arthropathy without myelopathy Recommendation of TPIs BL L3-S1. May need a series, up to every 2-3 mo, for optimal pain relief. Risks, benefits of procedure discussed and pt verbalized understanding. Denies anticoagulant use and admits to medical history of diabetes. Protocol for discontinuation/ continuation of medications sue procedure discussed. All patient questions answered I have spent less than 30 minutes on patient care today. Dr Rinaldi was available by phone for the evaluation of this patient. The time was used to review the medical records including relevant urine studies and Prescription history (MAPs), review of the available imaging, evaluation and examination of the patient, coordination of care with the medical staff and if applicable referring physicians, as well as creation of the medical record PQRS Narrative: Smoking Status Former smoker Hx Alcohol Use (MH) No Home Medications: Ambulatory Orders Pantoprazole Sodium 40 mg PO HS 01/29/17 Cholecalciferol [Vitamin D3 (25 Mcg = 1000 Iu)] 50 mcg PO DAILY 02/18/22 Citalopram Hydrobromide [CeleXA] 40 mg PO DAILY 02/18/22 Cyanocobalamin (Vitamin B-12) [Vitamin B-12] 1,000 mcg PO DAILY 02/18/22 Ibuprofen 800 mg PO Q8H PRN 02/18/22 Semaglutide [Ozempic] 1 mg SQ FR 02/18/22 buPROPion SR [Wellbutrin SR] 150 mg PO DAILY 02/18/22 lisinopriL [Zestril] 5 mg PO DAILY 02/18/22 metFORMIN HCL 500 mg PO DAILY 02/18/22 Pregabalin [Lyrica] 150 mg PO BID 03/30/22 Controlled Substance Measures - Controlled Substance Measures Is patient prescribed a controlled substance at discharge?: No
== END ==
LOC: PNWHC3 10:50
PROVIDERS: ATTEND Specialist
DX: M47.816 Spondylosis without myelopathy or radiculopathy, lumbar region (principal); M51.36 Other intervertebral disc degeneration, lumbar region; G89.29 Other chronic pain; Z87.891 Personal history of nicotine dependence
CPT/HCPCS: 99211

== ENCOUNTER 2022-07-07 12:32 | Day surgery (SDC) | payer MEDICARE, BC ==
[2022-07-05 14:19] VITALS: BMI 28.8
[~2022-07-07 12:32] MED LIST changes: -LACTATED RINGERS 1,000 ML IV SCH
[2022-07-07 13:58] VITALS: RESP 18; TEMP 97.5
[2022-07-07 14:08] LABS: Glucose,Whole Blood 79 mg/dL (70-110)
[2022-07-07] MEDS: LACTATED RINGERS 1,000 ML IV SCH ×2 (14:11→14:14)
[2022-07-07] MEDS ORDERED: ROPIVACAINE 5 MG/ML 20 ML AMPULE ONE (14:17)
[2022-07-07] MEDS ORDERED: MIDAZOLAM 2 MG/2 ML VIAL ONE (14:17)
[2022-07-07] MEDS ORDERED: fentaNYL (PF) 50 MCG/ML 2 ML AMP ONE (14:17)
[2022-07-07] MEDS ORDERED: methylPREDNISolone ACETATE 80 MG/ML 1 ML VIAL ONE (14:17)
--- NOTE | 2022-07-07 14:27 | P.PCN ---
Date of Procedure: 07/07/22 Procedure(s) Performed: Procedure= Trigger point injection lumbar paraspinal muscles L3 to S1, total of 3 trigger point injected on the right side, and 3 trigger point injected on the left side Preoperative diagnosis= 1-sacroiliitis 2- myofascial pain syndrome lumbar paraspinal muscles 3-lumbar facet arthropathy Postoperative diagnosis=Same as preop Diagnosis . Complication = none Condition= stable Anesthesia= moderate sedation with Versed 1 mg and fentanyl 50 g. Sedation start time 1418, end time 1422 Indication for the procedure= patient complaining of low back pain , examination was positive for multiple trigger point in the lumbar paraspinal muscles Description of the procedure= procedure risk and benefits discussed with the patient, including but not limited, risk of infection and bleeding, and ALLERGIC reaction to the medication and not complete pain relief and patient agreed with the preceding patient taken to the operating room, placed in prone position or standard monitors applied to the patient then after induction of anesthesia back prepped with chlorhexidine 3 times , then under sterile technique each of the trigger point injected with 12 ml ropivacaine 0.5% mixed With 40 mg of Depo- Medrol, total of 6 trigger point injected, 3 on the right side lumbar paraspinal muscles from L3 to S1 and 3 on the left side lumbar paraspinal muscles L3 to S1, each one of them injected with 2 mL of the mixtures , injection done after negative aspiration and there was no paresthesia during the injection injection done using 25-gauge needle patient tolerated the procedure well without any complications total of 12 ML of the medication was used, patient tolerated the procedure well without any complications and she will follow up in the pain clinic in 2 weeks for reevaluation
[2022-07-07] MEDS ORDERED: IV FLUID CONTINUATION 1,000 ML IV ONE (14:42)
[2022-07-07 14:45] VITALS: PULSE 62
[2022-07-07 14:54] VITALS: BP 103/57
[2022-07-07 14:54] LABS: Glucose,Whole Blood 130 mg/dL (70-110)
== END 2022-07-07 15:15 | disposition home or self-care (01) ==
LOC: ORPAIN 12:32
PROVIDERS: ATTEND Specialist
DX: M46.1 Sacroiliitis, not elsewhere classified (principal); M79.18 Myalgia, other site; M47.816 Spondylosis without myelopathy or radiculopathy, lumbar region
CPT/HCPCS: 20552; J2250; J1040; J3010; J2795

== ENCOUNTER 2022-07-29 12:46 | Emergency (ER) | payer MEDICARE ==
[2022-07-29] MEDS ORDERED: ONDANSETRON ODT 4 MG TAB PO STA (13:26)
[2022-07-29] MEDS ORDERED: KETOROLAC 15 MG/ML 1 ML VIAL IM STA (13:26)
--- NOTE | 2022-07-29 13:31 | ED ---
URI HPI - General Chief Complaint: Upper Respiratory Infection Stated Complaint: headache x2 days Time Seen by Provider: 07/29/22 13:17 Source: patient, family, RN notes reviewed, old records reviewed Mode of arrival: wheelchair Limitations: no limitations - History of Present Illness Initial Comments: Nontoxic-appearing 67-year-old female presents with family member complaining of sore throat, headache, nasal congestion and body aches for the past 2 days. Patient states that she had a runny nose for the past 10 days. Denies any fevers. Just returned from [place] this week. States that her neighbor has similar symptoms. MD Complaint: sore throat, rhinorrhea, nasal congestion, other (Body aches) -: days(s) (10) Severity scale (1-10): 10 Quality: aching Consistency: constant Improves With: nothing Context: sick contacts (Neighbor with same symptoms) Treatments Prior to Arrival: Acetaminophen - Related Data Home Medications Medication Instructions Recorded Confirmed Pantoprazole Sodium 40 mg PO HS 01/29/17 07/29/22 Citalopram Hydrobromide [CeleXA] 40 mg PO DAILY 02/18/22 07/29/22 Cyanocobalamin (Vitamin B-12) 1,000 mcg PO DAILY 02/18/22 07/29/22 [Vitamin B-12] Ibuprofen 800 mg PO Q8H PRN 02/18/22 07/29/22 Semaglutide [Ozempic] 1 mg SQ FR 02/18/22 07/29/22 buPROPion SR [Wellbutrin SR] 150 mg PO BID 02/18/22 07/29/22 lisinopriL [Zestril] 5 mg PO DAILY 02/18/22 07/29/22 Pregabalin [Lyrica] 150 mg PO BID 03/30/22 07/29/22 Calcium Carbonate [Calcium] 600 mg PO DAILY 07/29/22 07/29/22 Magnesium Oxide 400 mg PO DAILY 07/29/22 07/29/22 Zinc Gluconate [Zinc] 50 mg PO DAILY 07/29/22 07/29/22 metFORMIN HCL ER [Glucophage XR] 500 mg PO DAILY 07/29/22 07/29/22 Previous Rx's Medication Instructions Recorded Amoxic-Pot Clav 875-125Mg 1 tab PO Q12HR 10 Days #20 tab 07/29/22 [Augmentin 875-125] Allergies Allergy/AdvReac Type Severity Reaction Status Date / Time No Known Allergies Allergy Verified 07/29/22 15:09 Review of Systems ROS Statement: Those systems with pertinent positive or pertinent negative responses have been documented in the HPI. ROS Other: All systems not noted in ROS Statement are negative. Past Medical History Past Medical History: Diabetes Mellitus, GERD/Reflux, Osteoarthritis (OA) Additional Past Medical History / Comment(s): vertigo, chronic back pain History of Any Multi-Drug Resistant Organisms: None Reported Past Surgical History: Back Surgery, Breast Surgery, Cholecystectomy, Hyster ectomy, Tonsillectomy Additional Past Surgical History / Comment(s): PAIN CLINIC PROCEDURE. BREAST REDUCTION. COLONOSCOPY Past Anesthesia/Blood Transfusion Reactions: No Reported Reaction Past Psychological History: Anxiety, Depression Smoking Status: Never smoker Past Alcohol Use History: None Reported Past Drug Use History: Marijuana - Past Family History Mother Family Medical History: Cancer General Exam Limitations: no limitations General appearance: alert, in no apparent distress Head exam: Present: atraumatic Eye exam: Present: normal appearance, EOMI. Absent: scleral icterus, conjunctival injection, periorbital swelling ENT exam: Present: mucous membranes moist Expanded Mouth exam: Present: tongue normal, tongue elevation. Absent: drooling, trismus, muffled voice Throat exam: negative: tonsillar erythema, tonsillar exudate, R peritonsillar mass, L peritonsillar mass Neck exam: Absent: tenderness, meningismus, lymphadenopathy Respiratory exam: Present: normal lung sounds bilaterally. Absent: respiratory distress, accessory muscle use Cardiovascular Exam: Present: tachycardia GI/Abdominal exam: Present: soft. Absent: distended Extremities exam: Present: normal capillary refill. Absent: pedal edema Back exam: Present: normal inspection. Absent: tenderness, CVA tenderness (R), CVA tenderness (L), muscle spasm, vertebral tenderness, rash noted Neurological exam: Present: alert, oriented X3 Psychiatric exam: Present: normal affect, normal mood Skin exam: Present: warm, dry. Absent: cyanosis, diaphoretic, petechiae, pallor Course Vital Signs 07/29/22 07/29/22 13:02 15:56 Temperature 98 F 98.6 F Pulse Rate 100 94 Respiratory 20 18 Rate Blood Pressure 136/65 110/65 O2 Sat by Pulse 97 94 L Oximetry Medical Decision Making - Medical Decision Making Patient is given Toradol and Zofran with improvement in symptoms. Influenza and coronavirus swabs are negative. Symptoms have been present for greater than 10 days therefore she'll be placed on antibiotics and treated for sinusitis. She is agreeable to this plan of c are. Case discussed with Dr. Coyle - Lab Data Lab Results 07/29/22 07/29/22 Range/Units 13:44 13:44 Coronavirus (PCR) Not Detected (Not Detectd) Influenza Type A RNA Not Detected (Not Detectd) Influenza Type B (PCR) Not Detected (Not Detectd) Disposition Clinical Impression: Sinusitis Disposition: HOME SELF-CARE Condition: Good Instructions (If sedation given, give patient instructions): Upper Respiratory Infection (ED) Additional Instructions: Increase your fluid intake. Tylenol and or Motrin as needed for any body aches, fevers or discomfort. Use a humidifier in your room at night. Nasal saline spray for nasal congestion. Take antibiotics as prescribed. Return to the emergency room with any new or concerning symptoms. Follow-up with the primary care doctor next week. Prescriptions: Amoxic-Pot Clav 875-125Mg [Augmentin 875-125] 1 tab PO Q12HR 10 Days #20 tab Is patient prescribed a controlled substance at d/c from ED?: No Referrals: Nate Osborne MD [Primary Care Provider] - 1-2 days Time of Disposition: 15:17
[2022-07-29 15:58] VITALS: BP 110/65; PULSE 94; RESP 18; TEMP 98.6
== END 2022-07-29 15:57 | disposition home or self-care (01) ==
LOC: EC 12:46
DX: J32.9 Chronic sinusitis, unspecified (principal); E11.9 Type 2 diabetes mellitus without complications; K21.9 Gastro-esophageal reflux disease without esophagitis; F41.9 Anxiety disorder, unspecified; F32.A Depression, unspecified; F12.90 Cannabis use, unspecified, uncomplicated; Z79.899 Other long term (current) drug therapy; Z79.84 Long term (current) use of oral hypoglycemic drugs
CPT/HCPCS: 87502; 87635; 99284; 96372; J1885

== ENCOUNTER → 2022-08-08 | Outpatient (CLI) | payer MEDICARE ==
[2022-08-08 12:38] VITALS: BP 115/75; PULSE 83; RESP 18; TEMP 98
--- NOTE | 2022-08-08 14:47 | P.PAINPG ---
PQRS Measure Charge Sheet Comment: A 67 yr old female with a history of severe and chronic low back pain secondary to lumbar DDD and spondylosis with facet arthropathy without myelopathy presents today for evaluation s/p BL TPIs Lumbar spine. Pt states she experienced 95 % pain relief x 4 wks s/p procedure. Pain level is currently at 1 /10 in intensity, constant, localized in the BL lumbar spine, occasional ache, shooting towards the BLEs. Pain is provoked by over activity. Pain is alleviated with topicals, medications (Tylenol Arthritis), laying supine, repositioning and rest. Interventional pain procedures completed include BL SI injections, BL Lumbar TPIs Patient is currently on Tylenol Arthritis Patient denies any side effects of the medication(s), denies excessive drowsiness or sleepiness, denies suicidal ideation and reports that the current pain medication is helping to control the pain and improve activities of daily living. Patient denies any motor or sensory deficits. Patient denies any fever or night sweats, denies any change in the bowel movements or urination. Physical Examination: -Constitutional: Cooperative. Not in acute distress . - Neurologic: Cranial nerve II to XII intact. No focal neurological deficits. - Psychatric: Alert & oriented x 3. Matching mood & appropriate affect. Judgment and insight intact. - Musculoskeletal: Cervical spine: Muscle bulk/ tone/ strength in the bilateral upper extremities normal Vertebral body tenderness to palpation over Spurling test positive Distraction test positive Facet loading test positive Thoracic spine Muscle bulk / tone/ strength in the bilateral paraspinal muscles normal Vertebral body tender to palpation over Facet loading test positive Lumbar spine: Motor bulk/ tone/ strength lower extremities , thigh and legs : 5/5 Deep tendon reflexes : Normal Knee Jerk. Normal Ankle Jerk . Vertebral body tenderness to palpation over Lumbar Facet Loading Test positive Straight Leg Raise: positive at 30 degrees right side/ left side Gaenslen's Test positive Sacral spine : Severe tenderness over the Sacroiliac joint: right side / left side Range of motion: Flexion of the lumbar spine <60 degrees Range of motion: Extension of the lumbar spine <20 degrees Gaenslen's Test positive Donovan test: positive right side / left side Thigh Thrust Test Sacral Thrust Test Assessment and plan: Chronic low back pain secondary to lumbar degenerative disc disease, spondylosis with facet arthropathy without myelopathy Pt exhibited sufficient and substantial pain relief w prior procedure. She will manage residual pain w home remedies and return to the clinic on an as needed basis. Risks, benefits of procedure discussed and pt verbalized understanding. Denies anticoagulant use or medical history of diabetes. All patient questions answered I have spent less than 30 minutes on patient care today. Dr Rinaldi was available by phone for the evaluation of this patient. The time was used to review the medical records including relevant urine studies and Prescription history (MAPs), review of the available imaging, evaluation and examination of the patient, coordination of care with the medical staff and if applicable referring physicians, as well as creation of the medical record PQRS Narrative: Smoking Status Former smoker Hx Alcohol Use (MH) Yes: RARELY Home Medications: Ambulatory Orders Pantoprazole Sodium 40 mg PO HS 01/29/17 Citalopram Hydrobromide [CeleXA] 40 mg PO DAILY 02/18/22 Cyanocobalamin (Vitamin B-12) [Vitamin B-12] 1,000 mcg PO DAILY 02/18/22 Ibuprofen 800 mg PO Q8H PRN 02/18/22 Semaglutide [Ozempic] 1 mg SQ FR 02/18/22 buPROPion SR [Wellbutrin SR] 150 mg PO BID 02/18/22 lisinopriL [Zestril] 5 mg PO DAILY 02/18/22 Pregabalin [Lyrica] 150 mg PO BID 03/30/22 Amoxic-Pot Clav 875-125Mg [Augmentin 875-125] 1 tab PO Q12HR 10 Days #20 tab 07/29/22 Calcium Carbonate [Calcium] 600 mg PO DAILY 07/29/22 Magnesium Oxide 400 mg PO DAILY 07/29/22 Zinc Gluconate [Zinc] 50 mg PO DAILY 07/29/22 metFORMIN HCL ER [Glucophage XR] 500 mg PO DAILY 07/29/22 Controlled Substance Measures - Controlled Substance Measures Is patient prescribed a controlled substance at discharge?: No
== END ==
LOC: PNWHC3 12:13
PROVIDERS: ATTEND Specialist
DX: M47.816 Spondylosis without myelopathy or radiculopathy, lumbar region (principal); M51.36 Other intervertebral disc degeneration, lumbar region; Z87.891 Personal history of nicotine dependence
CPT/HCPCS: 99211

== ENCOUNTER → 2023-10-18 | Outpatient (CLI) | payer MEDICARE ==
--- NOTE | 2023-10-18 22:38 | BD ---
EXAMINATION TYPE: Axial Bone Density DATE OF EXAM: 10/18/2023 CLINICAL HISTORY: 68 years old Female. ICD-10 CODE: Z78.0 ASYMPTOMATIC MENOPAUSAL STATE Height: 63.25 Weight: 177 FRAX RISK QUESTIONS: Family History (Parent hip fracture): yes History of Fracture in Adulthood: no Secondary Osteoporosis: no RISK FACTORS HISTORY OF: Surgery to Spine: yes When: 2003 MEDICATIONS: Thyroid Medications: no Osteoporosis Medications: no EXAM MEASUREMENTS: Bone mineral densitometry was performed using the [employer] System. Bone mineral density about the R hip (g/cm2): 0.852 Bone mineral density about the L hip (g/cm2): 0.965 T Score values are as follows: -----R Neck: -2.0 -----L Neck: -1.7 -----R Total: -1.2 -----L Total: -0.3 Z Score values are as follows: -----R Neck: -0.7 -----L Neck: -0.4 -----R Total: -0.2 -----L Total: 0.7 Bone mineral density baseline Bone mineral density about the L Wrist (g/cm2): 0.506 T Score values are as follows: -----Dist. R+U: -3.0 -----Prox. R+U: -2.4 -----Radius total: -2.8 Z Score values are as follows: -----Dist. R+U: -1.4 -----Prox. R+U: -0.7 -----Radius total: -1.1 Bone mineral density baseline FRAX%s: The graph provided illustrates a 17.6% chance for a major osteoporotic fx and a 3.0% chance f or the hips probability for fx in 10 years time. IMPRESSION: Osteopenia (T Score between -2.5 and -1). There is slightly increased risk of fracture and the patient may be considered for treatment. Re-Screen 2-5 years. NOTE: T-SCORE=SD OF THE YOUNG ADULT MEAN.
--- NOTE | 2023-10-19 14:16 | MM ---
Reason for Exam: Screening (asymptomatic). Last screening mammogram was performed 12 month(s) ago. Patient History: Menarche at age 11. First Full-Term at age 22. Left ovary removed at age 47. Right ovary removed at age 47. Hysterectomy at age 47. Postmenopausal. Hormonal Contraceptives, from age 19 until age 21. 1982, Bilateral Reduction. 1982, Benign Excisional Biopsy on the right side. Sister had breast cancer, age 52. Risk Values: Aniyah 5 year model risk: 4.2%. NCI Lifetime model risk: 13.2%. Prior Study Comparison: 08/07/2020 Right Diagnostic Mammogram, [facility]. 09/07/2021 Bilateral Diagnostic Mammogram, [facility]. 10/10/2022 Bilateral MG 3D screening mammo w/cad, [facility]. Tissue Density: The breasts are heterogeneously dense, which may obscure small masses. Findings: Analyzed By CAD. There is no suspicious group of microcalcifications or new suspicious mass in either breast. Benign-appearing calcifications. Overall Assessment: Benign, BI-RAD 2 Management: Screening Mammogram of both breasts in 1 year. . Patient should continue monthly self-breast exams. A clinical breast exam by your physician is recommended on an annual basis. This exam should not preclude additional follow-up of suspicious palpable abnormalities. Note on Aniyah scores and lifetime risk: 1. A Aniyah score greater than 3% is considered moderate risk. If this is the case, consider specialist referral to assess eligibility for a risk reducing agent. 2. If overall lifetime risk for the development of breast cancer is 20% or higher, the patient may qualify for future screening with alternating mammogram and breast MRI. Electronically signed and approved by: Asif Addison M.D. Radiologis
== END | disposition home or self-care (01) ==
LOC: RADMAMWWP 08:53
PROVIDERS: ATTEND Family Medicine
DX: Z12.31 Encounter for screening mammogram for malignant neoplasm of breast (principal); M81.0 Age-related osteoporosis without current pathological fracture; M85.89 Other specified disorders of bone density and structure, multiple sites; Z78.0 Asymptomatic menopausal state; Z80.3 Family history of malignant neoplasm of breast
CPT/HCPCS: 77063; 77067; 77080

== ENCOUNTER → 2024-11-19 | Outpatient (CLI) | payer MEDICARE, BC ==
--- NOTE | 2024-11-19 13:44 | MM ---
Reason for Exam: Screening (asymptomatic). Last mammogram was performed 1 year(s) and 1 month(s) ago. Patient History: Menarche at age 11. First Full-Term at age 22. Left ovary removed at age 47. Right ovary removed at age 47. Hysterectomy at age 47. Postmenopausal. Hormonal Contraceptives, from age 19 until age 21. 1982, Bilateral Reduction. 1982, Benign Excisional Biopsy on the right side. Sister had breast cancer, age 52. Risk Values: Aniyah 5 year model risk: 4.2%. NCI Lifetime model risk: 12.7%. Prior Study Comparison: 04/11/2019 Bilateral Screening Mammogram, [facility]. 08/03/2020 Bilateral Screening Mammogram, [facility]. 08/07/2020 Right Diagnostic Mammogram, [facility]. 09/07/2021 Bilateral Diagnostic Mammogram, [facility]. 10/10/2022 Bilateral MG 3D screening mammo w/cad, [facility]. 10/18/2023 Bilateral MG 3D screening mammo w/cad, [facility]. Tissue Density: The breasts are heterogeneously dense, which may obscure small masses. Findings: Analyzed By CAD. There is no suspicious group of microcalcifications or new suspicious mass in either breast. Overall Assessment: Benign, BI-RAD 2 Management: Screening Mammogram of both breasts in 1 year. . Patient should continue monthly self-breast exams. A clinical breast exam by your physician is recommended on an annual basis. This exam should not preclude additional follow-up of suspicious palpable abnormalities. Note on Aniyah scores and lifetime risk: 1. A Aniyah score greater than 3% is considered moderate risk. If this is the case, consider specialist referral to assess eligibility for a risk reducing agent. 2. If overall lifetime risk for the development of breast cancer is 20% or higher, the patient may qualify for future screening with alternating mammogram and breast MRI. [facility], , 11/19/2024 1:41 PM. Electronically signed and approved by: Venkatesh Myers M.D. Radiologis
== END | disposition home or self-care (01) ==
LOC: RADMAMWWP 13:20
PROVIDERS: ATTEND Family Medicine
DX: Z12.31 Encounter for screening mammogram for malignant neoplasm of breast (principal); R92.333 Mammographic heterogeneous density, bilateral breasts; Z78.0 Asymptomatic menopausal state; Z80.3 Family history of malignant neoplasm of breast; Z92.0 Personal history of contraception
CPT/HCPCS: 77063; 77067

== ENCOUNTER → 2024-11-19 | Outpatient (CLI) | payer MEDICARE, BC ==
--- NOTE | 2024-11-19 13:35 | CTL ---
EXAMINATION TYPE: CT Low Dose Lung DATE OF EXAM ORDERED: 11/19/2024 COMPARISON: CLINICAL INDICATION: Female, 69 years old with history of Z12.2 Enctr scrn malig neop, Z87.[address]; [facility], screening lung CA, Lung cancer screening, History of Smoking/tobacco use. TECHNIQUE: Low dose computed tomography scan was performed through the chest at 1 mm thick sections a nd reconstructed images in multiple planes at 1 mm and [address] DLP: [address] CTDI: 2.14 mGy Automated exposure control for dose reduction was used. CT DIAGNOSTIC QUALITY: Satisfactory FINDINGS: EXAMINATION TYPE: CT Low Dose Lung DATE OF EXAM ORDERED: 11/19/2024 CLINICAL INDICATION: Female, 69 years old with history of Z12.2 Enctr scrn malig neop, Z87.[address], history of tobacco use, Lung cancer screening CT DLP: [address] CTDI: 2.14 mGy Automated exposure control for dose reduction was used. Comparison: None TECHNIQUE: Low dose computed tomography scan was performed through the chest at 1 mm thick sections a nd reconstructed images in multiple planes at 1 mm and [address] DIAGNOSTIC QUALITY: Satisfactory FINDINGS: There is a mild goiter. There are a few scattered nodules the largest of which is a 7.8 mm nodule in the lingula. There is no airspace consolidation. There is no abnormal soft tissue density. There is no mediastinal, hilar or axillary adenopathy. There is no pleural effusion, pleural thickening or pneumothorax. No focal osseous lesions are seen. Limited scans the upper abdomen reveals cholecystectomy and postoperative changes involving the stoma ch. IMPRESSION: 1. Lung RADS category 3, a few scattered nodules largest of which is 7.5 mm in the lingula. Follow-up CT thorax in 6 months is recommended to confirm stability. 2. No acute cardiopulmonary disease 3. Mild goiter [facility], , 11/19/2024 1:33 PM
== END | disposition home or self-care (01) ==
LOC: RADCTMAIN 12:56
PROVIDERS: ATTEND Family Medicine
DX: Z12.2 Encounter for screening for malignant neoplasm of respiratory organs (principal); R91.8 Other nonspecific abnormal finding of lung field; E04.9 Nontoxic goiter, unspecified; Z87.891 Personal history of nicotine dependence
CPT/HCPCS: 71271

== ENCOUNTER → 2024-11-21 | Outpatient (CLI) | payer MEDICARE, BC ==
[2024-11-21 15:30] LABS: T4, Free (Free Thyroxine) 0.76 ng/dL (0.80-1.80)
[2024-11-21 17:01] LABS: Thyroid Peroxidase Antibodies <9.0 U/mL (0.0-33.0)
== END | disposition home or self-care (01) ==
LOC: LABWHC1 10:06
PROVIDERS: ATTEND Family Medicine
DX: E04.9 Nontoxic goiter, unspecified (principal)
CPT/HCPCS: 36415; 84432; 84439; 84443; 84481; 86376; 86800

== ENCOUNTER 2025-02-08 11:26 | Emergency (ER) | payer MEDICARE, BC ==
--- NOTE | 2025-02-08 11:54 | ED ---
Back Pain HPI - General Chief Complaint: Back Pain/Injury Stated Complaint: Back pain, abd pain Time Seen by Provider: 02/08/25 11:32 Source: patient, RN notes reviewed Mode of arrival: ambulatory Limitations: no limitations - History of Present Illness Initial Comments: This is a 69-year-old female who presents to the emergency department for back pain. Patient tripped and fell outside 5 days ago and landed directly on her lower back. She has since had pain to this area that she believes is getting worse. Reports some radiation of pain down her legs. Denies any loss of bowel/bladder control or saddle anesthesia. States that any movement makes this much worse. She did go to the spine center a few days ago for a shot of Toradol which was temporarily effective. However, they did not do any imaging at that time. She has tried taking Aleve and using topical Voltaren which is only mildly effective. MD Complaint: back pain, back injury, fall - Related Data Home Medications Medication Instructions Recorded Confirmed Pantoprazole Sodium 40 mg PO HS 01/29/17 08/08/22 Citalopram Hydrobromide [CeleXA] 40 mg PO DAILY 02/18/22 08/08/22 Cyanocobalamin (Vitamin B-12) 1,000 mcg PO DAILY 02/18/22 08/08/22 [Vitamin B-12] Ibuprofen 800 mg PO Q8H PRN 02/18/22 08/08/22 Semaglutide [Ozempic] 1 mg SQ FR 02/18/22 08/08/22 buPROPion SR [Wellbutrin SR] 150 mg PO BID 02/18/22 08/08/22 lisinopriL [Zestril] 5 mg PO DAILY 02/18/22 08/08/22 Pregabalin [Lyrica] 150 mg PO BID 03/30/22 08/08/22 Calcium Carbonate [Calcium] 600 mg PO DAILY 07/29/22 08/08/22 Magnesium Oxide 400 mg PO DAILY 07/29/22 08/08/22 Zinc Gluconate [Zinc] 50 mg PO DAILY 07/29/22 08/08/22 metFORMIN HCL ER [Glucophage XR] 500 mg PO DAILY 07/29/22 08/08/22 Previous Rx's Medication Instructions Recorded Amoxic-Pot Clav 875-125Mg 1 tab PO Q12HR 10 Days #20 tab 07/29/22 [Augmentin 875-125] Diclofenac Sodium [Voltaren] 75 mg PO BID PRN #30 tab 02/08/25 HYDROcodone/APAP 5-325MG [Ralls 1 tab PO Q6HR PRN 3 Days #12 tab 02/08/25 5-325] Lidocaine 5% Patch [Lidoderm 5% 1 patch TOPICAL DAILY PRN #30 patch 02/08/25 Patch] Allergies Allergy/AdvReac Type Severity Reaction Status Date / Time No Known Allergies Allergy Verified 02/08/25 11:30 Review of Systems ROS Statement: Those systems with pertinent positive or pertinent negative responses have been documented in the HPI. ROS Other: All systems not noted in ROS Statement are negative. Past Medical History Past Medical History: Diabetes Mellitus, GERD/Reflux, Osteoarthritis (OA) Additional Past Medical History / Comment(s): vertigo, chronic back pain History of Any Multi-Drug Resistant Organisms: None Reported Past Surgical History: Back Surgery, Breast Surgery, Cholecystectomy, Hysterectomy, Tonsillectomy Additional Past Surgical History / Comment(s): PAIN CLINIC PROCEDURE. BREAST REDUCTION. COLONOSCOPY Past Anesthesia/Blood Transfusion Reactions: No Reported Reaction Past Psychological History: Anxiety, Depression Smoking Status: Never smoker - Past Family History Mother Family Medical History: Cancer General Exam Limitations: no limitations General appearance: alert, in no apparent distress Head exam: Present: atraumatic, normocephalic, normal inspection Respiratory exam: Present: normal lung sounds bilaterally. Absent: respiratory distress, wheezes, rales, rhonchi, stridor Cardiovascular Exam: Present: regular rate, normal rhythm Back exam: Present: other (Tenderness to palpation over the lumbar spine. Range of motion limited by pain.) Neurological exam: Present: alert, oriented X3, CN II-XII intact Psychiatric exam: Present: normal affect, normal mood Skin exam: Present: warm, dry, intact, normal color. Absent: rash Course Vital Signs 02/08/25 02/08/25 02/08/25 11:28 13:00 13:39 Temperature 98.0 F 98 F 98 F Pulse Rate 81 62 65 Respiratory 18 16 16 Rate Blood Pressure 108/62 100/64 104/68 O2 Sat by Pulse 96 96 96 Oximetry Medical Decision Making - Medical Decision Making This is a 69-year-old male who presents to the emergency department for low back pain after fall. Was pt. sent in by a medical professional or institution? @ -No Did you speak to anyone other than the patient for history? @ -No Did you review nursing and triage notes? @ -Yes, and I agree, it is accurate with regards to the patient's symptoms. Were old charts reviewed? @ -No Differential Diagnosis? @ -Differential Back Pain: Strain, zoster, cauda equina syndrome, epidural abscess, vertebral osteomyelitis, discitis, fracture, subluxation, disc herniation, DJD, spinal stenosis, dissection, AAA, pancreatitis, peptic ulcer disease, pyelonephritis, kidney stone, this is not meant to be an all-inclusive list. EKG interpreted by me (3pts min.)? @ -Not obtained X-rays interpreted by me (1pt min.)? @ -Not obtained CT interpreted by me (1pt min.)? @ -CT scan of the lumbar spine obtained. My interpretation identifies an L1 compression fracture. U/S interpreted by me (1pt. min.)? @ -Not obtained What testing was considered but not performed? (CT, X-rays, U/S, labs)? Why? @ -None What meds were considered but not given? Why? @ -None Did you discuss the management of the patient with other professionals? @ -No Did you reconcile home meds? @ -No Was smoking cessation discussed for >3mins.? @ -No Was critical care preformed (if so, how long)? @ -No Were there social determinants of health that impacted care today? How? (Homelessness, low income, unemployed, alcoholism, drug addiction, transportation, low edu. Level, literacy, decrease access to med. care, custodial, rehab)? @ -No Was there de-escalation of care discussed even if they declined? (Discuss DNR or withdrawal of care, Hospice)? @ -No What co-morbidities impacted this encounter? (DM, HTN, Smoking, COPD, CAD, Cancer, CVA, Hep., AIDS, mental health diagnosis, sleep apnea, morbid obesity)? @ -Osteoarthritis Was patient admitted / discharged? @ -Discharged. CT scan of the lumbar spine demonstrates a moderate compression fracture of L1 without retropulsion. Pain was managed in the emergency department. She does have several back braces at home which I advised she start wearing for support. Diclofenac, Ralls, and lidocaine patches prescribed for pain control. She does already follow with the spine center and I advised she follow-up with them regarding the compression fracture to see if they can offer any other treatment options such as a kyphoplasty. Patient discharged home in stable condition. Case discussed with ED attending Dr. Monahan. Return precautions reviewed in depth, the patient is instructed to return to the emergency department with any new, worsening, or concerning symptoms. Patient verbalized understanding. Undiagnosed new problem with uncertain prognosis? @ -None Drug Therapy requiring intensive monitoring for toxicity (Heparin, Nitro, Insulin, Cardizem)? @ -None Were any procedures done? @ -None Diagnosis/symptom? @ -Fall, L1 compression fracture Acute, or Chronic, or Acute on Chronic? @ -Acute Uncomplicated (without systemic symptoms) or Complicated (systemic symptoms)? @ -Uncomplicated Side effects of treatment? @ -None Exacerbation, Progression, or Severe Exacerbation] @ -Not applicable Poses a threat to life or bodily function? @ -Yes, pain may limit her ability to move for the meantime. - Radiology Data Radiology results: report reviewed, image reviewed Disposition Clinical Impression: Fall, Compression fracture of L1 lumbar vertebra Disposition: HOME SELF-CARE Instructions (If sedation given, give patient instructions): Vertebral Compression Fracture (ED), Kyphoplasty (DC), Procedures for Compression Fractures of the Spine (DC) Additional Instructions: Return to the emergency department with any new, worsening, or concerning symptoms. Take the diclofenac twice daily for pain control. If you choose to take this, do not take Aleve, take one or the other. Take the Ralls sparingly when your pain is the most severe. You can also apply the lidocaine patches daily. Try wearing your back brace for support. Contact the spine center and let them know that you were found to have an L1 compression fracture and see if they would like to do something like a kyphoplasty to repair it. Prescriptions: Lidocaine 5% Patch [Lidoderm 5% Patch] 1 patch TOPICAL DAILY PRN #30 patch PRN Reason: Pain HYDROcodone/APAP 5-325MG [Ralls 5-325] 1 tab PO Q6HR PRN 3 Days #12 tab PRN Reason: Pain Diclofenac Sodium [Voltaren] 75 mg PO BID PRN #30 tab PRN Reason: Pain Is patient prescribed a controlled substance at d/c from ED?: Yes When asked, does pt state using other controlled substances?: No If prescribed controlled substance>3 days was MAPS reviewed?: Prescribed <3 Days Referrals: Nate Osborne MD [Primary Care Provider] - 1-2 days Time of Disposition: 12:55
[2025-02-08] MEDS: LIDOCAINE 4% PATCH TOPICAL ONE (12:00)
[2025-02-08] MEDS: ACETAMINOPHEN TAB 500 MG TAB PO STA (12:01)
[2025-02-08] MEDS: KETOROLAC 15 MG/ML 1 ML VIAL IM STA (12:01)
[2025-02-08] MEDS: MORPHINE SULFATE 4 MG/ML SYRINGE IM STA (12:02)
--- NOTE | 2025-02-08 12:40 | CT ---
EXAMINATION TYPE: CT lumbar spine wo con DATE OF EXAM: 02/08/2025 12:28 PM COMPARISON: 02/25/2022 CLINICAL INDICATION: Female, 69 years old with history of Fall; [facility], PAIN AFTER FALL X FEW DAYS AGO. HX OF BACK SX. TECHNIQUE: Unenhanced CT of the lumbar spine was performed. Bone and soft tissue window settings are submitted as well as coronal and sagittal reconstructions. CT DLP: 1182.[address] CTDI: mGy Automated exposure control for dose reduction was used. FINDINGS: There has been interval development of a moderate compression fracture of L1 with no retropulsion. Postsurgical changes of laminectomy and posterior fusion of L5 and S1. There is a persistent grade 2 anterolisthesis of L5 on S1. There is persistent prominent Schmorl's node in the superior endplate of L3 and there is marked degen erative disc disease at the L to 3 level where there is marked disc space narrowing and mild spondylo sis. Secondary to circumferential disc bulge and mild thickening of ligamentum flavum, there is a mild spi nal stenosis at the L3-4 level. IMPRESSION: 1. Acute moderate compression fracture of L1 without retropulsion. 2. Mild spinal stenosis at the L3-4 level. 3. Laminectomy and fusion at the L5-S1 level. 4. Stable Grade 2 anterolisthesis of L5 on S1. 5. Stable marked degenerative disease at the L2-3 level with large Schmorl's node in the superior end plate of L3. [facility], , 02/08/2025 12:37 PM
[2025-02-08 13:17] VITALS: RESP 16; TEMP 98
[2025-02-08 13:41] VITALS: BP 104/68; PULSE 65
== END 2025-02-08 13:39 | disposition home or self-care (01) ==
LOC: EC 11:26
DX: S32.018A Other fracture of first lumbar vertebra, initial encounter for closed fracture (principal); M19.90 Unspecified osteoarthritis, unspecified site; W01.0XXA Fall on same level from slipping, tripping and stumbling without subsequent striking against object, initial encounter
CPT/HCPCS: 72131; 99284; 96372 ×2; J2270; J1885